=== PATIENT | female | born 1990 | race Caucasian/White ===

== ENCOUNTER → 2017-10-21 | Outpatient (CLI) | payer OTHER ==
[~2017-10-21] MED LIST: ESCI10TA17 PO; GABA800T PO; HYDR50CA2 PO; IBUP-1451 PO; LEVO100T7 PO; ONDA8TAB6 PO; OXYC-57 PO; PRAZ1CAP PO; RANI150T3 PO; TIZA4TAB3 PO; ZOLM1TAB3 PO; ZOLP5TAB PO
--- NOTE | 2017-10-21 08:25 | DIAGNOSTIC IMAGING REPORT ---
L LOWER EXT JOINT WITHOUT CLINICAL HISTORY: CHRONIC L KNEE PAIN pain TECHNIQUE: MRI multi axial acquisition COMPARISON STUDY: None FINDINGS: Somewhat limited exam due to the patient's body habitus and the necessity of using a body coil rather than a dedicated knee coil. Signal characteristics the osseous structures are unremarkable. No significant joint effusion. Anterior and posterior cruciate ligaments are intact. Collateral ligaments are unremarkable. Menisci are very limited terms of evaluation. No major meniscal tear is identified. Possible slight truncation mid apex medial meniscus. IMPRESSION: 1. Very limited exam due to patient body habitus considerations. 2. Slight truncation mid apex medial meniscus. 3. Otherwise negative study The above report was generated using voice recognition software. It may contain grammatical, syntax or spelling errors. Electronically signed by: Stuart Auguste M.D. 10/21/2017 8:24 AM Dictated Date/Time: 10/21/2017 8:12 AM
== END | disposition home or self-care (01) ==
LOC: C.MRIBC 07:01
PROVIDERS: ATTEND Family Medicine
DX: M25.562 Pain in left knee (principal); G89.29 Other chronic pain